=== PATIENT | male | born 1985 | race Caucasian/White ===

== ENCOUNTER 2017-10-30 08:19 | Emergency (ER) | payer MEDICAID, OTHER ==
[2017-10-30 08:19] VITALS: BMI 28.0
--- NOTE | 2017-10-30 09:07 | C.PDOC ---
History Of Present Illness 31 y/o male with PMHx of Hypercholesterolemia presents to ED with complaints of left sided abdominal pain for 4 days. Patient states he has history of constipation and reports moving bowel but hasn't had bowel movement today. Patient denies fever, chills, nausea, vomiting or any other complaints at this time. Time Seen by Provider: 10/30/17 08:21 Chief Complaint (Nursing): Abdominal Pain History Per: Patient History/Exam Limitations: no limitations Onset/Duration Of Symptoms: Days Current Symptoms Are (Timing): Still Present Location Of Pain/Discomfort: LUQ Radiation Of Pain To:: None Quality Of Discomfort: Cramping Last Bowel Movement: Yesterday Recent travel outside of the [place]: No Past Medical History Reviewed: Historical Data, Nursing Documentation, Vital Signs Vital Signs: Last Vital Signs Temp 98.3 F 10/30/17 10:10 Pulse 84 10/30/17 10:10 Resp 18 10/30/17 10:10 BP 119/83 10/30/17 10:10 Pulse Ox 97 10/30/17 10:10 - Medical History PMH: Hypercholesterolemia Surgical History: No Surg Hx - [facility] Procedures INJECT/INFUSE NEC (12/23/06) Family History: States: No Known Family Hx - Social History Hx Tobacco Use: No Hx Alcohol Use: No Hx Substance Use: No - Immunization History Hx Tetanus Toxoid Vaccination: No Hx Influenza Vaccination: No Hx Pneumococcal Vaccination: No Review Of Systems Constitutional: Negative for: Fever, Chills Gastrointestinal: Positive for: Abdominal Pain, Constipation. Negative for: Nausea, Vomiting Musculoskeletal: Negative for: Back Pain Skin: Negative for: Rash Physical Exam - Physical Exam Appears: Non-toxic, No Acute Distress Skin: Normal Color, Warm, Dry, No Rash Head: Atraumatic, Normacephalic Eye(s): bilateral: Normal Inspection Oral Mucosa: Moist Neck: Normal ROM, Supple Chest: Symmetrical Cardiovascular: Rhythm Regular Respiratory: Normal Breath Sounds, No Rales, No Rhonchi, No Wheezing Gastrointestinal/Abdominal: Soft, No Tenderness, No Guarding, No Rebound Back: No CVA Tenderness Extremity: Normal ROM, Capillary Refill (<2 seconds) Neurological/Psych: Oriented x3 Gait: Steady ED Course And Treatment - Laboratory Results Result Diagrams: 10/30/17 09:04 10/30/17 09:04 Lab Interpretation: Normal O2 Sat by Pulse Oximetry: 96 (RA) Pulse Ox Interpretation: Normal - Other Rad No standard instances X-Ray: Interpreted by Me Interpretation: OBS series: no OBS Progress Note: On re-evaluation abdomen soft non-tender. in no distress Reassessment Condition: Improved Medical Decision Making Medical Decision Making: Plan: Blood work, UA, Obstructive Series ordered Disposition Counseled Patient/Family Regarding: Studies Performed, Diagnosis, Need For Followup, Rx Given - Disposition Referrals: [facility] [Outside] [facility] [Outside] Disposition: HOME/ ROUTINE Disposition Time: 10:20 Condition: STABLE Additional Instructions: Follow up with PMD for further evaluation Return to ED if any increase symptoms Prescriptions: Polyethylene Glycol 3350 [Miralax] 17 gm PO DAILY PRN #12 packet PRN Reason: Constipation Instructions: Abdominal Pain (ED) Forms: [facility] ([place]) - POA Present On Arrival: None - Clinical Impression Clinical Impression: Abdominal pain, Constipated - 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 - Scribe Statement The provider has reviewed the documentation as recorded by the Scribedson Moser All medical record entries made by the Melanie were at my direction and personally dictated by me. I have reviewed the chart and agree that the record accurately reflects my personal performance of the history, physical exam, medical decision making, and the department course for this patient. I have also personally directed, reviewed, and agree with the discharge instructions and disposition.
[2017-10-30 09:12] LABS: RBC URINE < 1 /hpf (0-3); URINE BILIRUBIN NEGATIVE (NEGATIVE); URINE BLOOD NEGATIVE (NEGATIVE); URINE COLOR Straw (YELLOW); URINE GLUCOSE (UA) NORMAL (Normal); URINE KETONE NEGATIVE (NEGATIVE); URINE LEUKOCYTE ESTERASE NEG Leu/uL (Negative); URINE PROTEIN NEGATIVE (NEGATIVE); URINE UROBILINOGEN NORMAL mg/dL (0.2-1.0)
[2017-10-30 09:13] LABS: BASO % 0.7 % (0.0-2.0); EOS # 0.1 K/uL (0.0-0.7); EOS % 1.7 % (0.0-4.0); LYMPH # 1.4 K/uL (1.0-4.3); LYMPH % 26.2 % (20.0-40.0); MEAN CELL VOLUME 85.6 fL (80.0-94.0); MEAN CORPUSCULAR HEMOGLOBIN 29.8 pg (27.0-31.0); MEAN CORPUSCULAR HGB CONC 34.8 g/dL (33.0-37.0); MEAN PLATELET VOLUME 9.2 fL (7.2-11.7); MONO # 0.5 K/uL (0.0-0.8); MONO % 9.4 % (0.0-10.0); NRBC % 0.1 % (0.0-2.0); RED CELL DISTRIBUTION WIDTH 13.5 % (11.5-14.5); WHITE BLOOD COUNT 5.2 K/uL (4.8-10.8)
[2017-10-30 09:30] LABS: ALB/GLOB RATIO 1.6 (1.0-2.1); ALKALINE PHOSPHATASE 47 U/L (38-126); ALT/SGPT 41 U/L (21-72); AST/SGOT 23 U/L (17-59); BILIRUBIN,TOTAL 0.7 mg/dL (0.2-1.3); BLOOD UREA NITROGEN 12 mg/dL (9-20); CALCIUM 8.5 mg/dl (8.6-10.4); CARBON DIOXIDE 27 mmol/L (22-30); CHLORIDE 103 mmol/L (98-107); GFR AFRICAN-AMERICAN > 60; GLUCOSE,RANDOM 96 mg/dL (75-110); POTASSIUM 3.8 mmol/L (3.6-5.2); SODIUM 140 mmol/L (132-148); TOTAL PROTEIN 7.3 g/dL (6.3-8.3)
[2017-10-30 10:12] VITALS: BP 119/83; PULSE 84; RESP 18; TEMP 98.3
[2017-10-30 10:28] VITALS: O2SAT 96
--- NOTE | 2017-10-30 12:40 | RAD ---
PROCEDURE: Radiographs of the chest and abdomen (obstructive series) HISTORY: Abd Pain COMPARISON: CT abdomen pelvis with contrast performed 08/10/15, obstructive series performed 05/09/15 TECHNIQUE: AP radiograph of the chest, with upright and supine radiographs of the abdomen. FINDINGS: CHEST: Cardiomediastinal silhouette appears within normal limits. No focal consolidation, significant pleural effusion, or definite pneumothorax identified.Please note that chest x-ray has limited sensitivity for the detection of pulmonary masses. ABDOMEN AND PELVIS: Nonspecific dilated loops of small bowel in the upper mid abdomen. Mild to moderate constipation. No definite free air. No acute osseous abnormality is detected. IMPRESSION: Nonspecific dilated loops of small bowel in the upper mid abdomen. Correlate clinically for possibility of obstruction. CT may be considered for further evaluation if indicated. Mild to moderate constipation. Findings discussed with Paige Murrieta on 10/30/17 at 12:37 p.m..
== END 2017-10-30 10:32 | disposition home or self-care (01) ==
LOC: C.ER 08:19
DX: K59.00 Constipation, unspecified (principal); R10.12 Left upper quadrant pain

== ENCOUNTER 2017-12-18 11:08 | Emergency (ER) | payer BC, MEDICAID ==
[2017-12-18 11:08] VITALS: BMI 28.0
[2017-12-18 11:18] VITALS: TEMP 97.6
--- NOTE | 2017-12-18 11:45 | C.PDOC ---
History Of Present Illness 32 yo male w/ PMHx of high cholesterol ( diet control) come in for evaluation of intermittent left sided chest pain since yesterday. Pt reports, " this AM developed some heart flattering". Pt reports, episode of palpitation last few seconds and resolved with time. At present time, pt c/o mild chest tightness. Otherwise, pt denies previous hx of card. ds or surgery, denies recent illness, fever, chills, headache, dizziness, neck pain, SOB, dyspnea, palpitation, denies radiation of chest pain, abd. pain, N/V/D, back pain, UTI sx,. Ambulate to Ed for evaluation, not in any apparent distress. Time Seen by Provider: 12/18/17 11:24 Chief Complaint (Nursing): Chest Pain History Per: Patient Onset/Duration Of Symptoms: Intermittent Episodes Past Medical History Reviewed: Historical Data, Nursing Documentation, Vital Signs Vital Signs: Last Vital Signs Temp 97.6 F 12/18/17 13:50 Pulse 68 12/18/17 13:50 Resp 18 12/18/17 13:50 BP 110/69 12/18/17 13:50 Pulse Ox 98 12/18/17 14:06 - Medical History PMH: Hypercholesterolemia Surgical History: No Surg Hx - [facility] Procedures INJECT/INFUSE NEC (12/23/06) Family History: Denies: [place] (early) - Social History Hx Tobacco Use: No Hx Alcohol Use: No Hx Substance Use: No - Immunization History Hx Tetanus Toxoid Vaccination: No Hx Influenza Vaccination: No Hx Pneumococcal Vaccination: No Review Of Systems Except As Marked, All Systems Reviewed And Found Negative. Constitutional: Negative for: Fever, Chills Eyes: Negative for: Vision Change ENT: Negative for: Ear Discharge, Nose Discharge, Throat Pain, Throat Swelling Cardiovascular: Positive for: Chest Pain, Palpitations. Negative for: Edema, Light Headedness Respiratory: Negative for: Cough, Shortness of Breath, Wheezing Gastrointestinal: Negative for: Nausea, Vomiting, Abdominal Pain Genitourinary: Negative for: Dysuria Musculoskeletal: Negative for: Neck Pain, Back Pain Skin: Negative for: Rash Neurological: Negative for: Weakness, Numbness, Altered Mental Status, Headache , Dizziness Physical Exam - Physical Exam Appears: Well, Non-toxic, No Acute Distress Skin: Normal Color, Warm, Dry, No Rash Eye(s): bilateral: PERRL Nose: No Flaring, No Discharge Oral Mucosa: Moist Throat: No Drooling Neck: Trachea Midline, Supple Cardiovascular: Rhythm Regular, No Murmur, No JVD Respiratory: No Decreased Breath Sounds, No Accessory Muscle Use, No Stridor, No Wheezing Gastrointestinal/Abdominal: Soft, No Tenderness, No Distention, No Guarding Back: No CVA Tenderness Extremity: Normal ROM, No Pedal Edema, No Deformity Neurological/Psych: Oriented x3, Normal Speech ED Course And Treatment - Laboratory Results Result Diagrams: 12/18/17 12:37 12/18/17 12:37 Lab Interpretation: Normal ECG: Interpreted By Me, Viewed By Me (and ED attending) ECG Rhythm: Sinus Rhythm ECG Interpretation: Normal Interpretation Of ECG: SR@72/min, NAD, T wave inversion in III, no acute ST-T changes. O2 Sat by Pulse Oximetry: 98 Pulse Ox Interpretation: Normal - Radiology CXR: Interpreted by Me, Viewed By Me CXR Interpretation: Yes: No Acute Disease Progress Note: Pt was OBS in ED for 2.5 hours. On re-eval, pt reports moderate improvement symptoms. Pt sts, asymptomatic now. Afebrile, hemdoynamicaly stable. Non-toxic. Ambulatory in ED with stable gait. PuslEOx 98% RA. ENT: no acute findings. neck: SUpple, (-) JVD, (-) carotid bruits B/L. Lungs: CTA B /L, BS equal B/L. CVS: (+)S1S2, reg, (-) murmur. Abd: benign, (-) guarding, (- ) rebound. Back: (-) CVA tenderness. Neurologicaly intact. Blood work review and appears without acute abnormalities. Troponin- negative. CXR, EKG- normal study. Pt has clinical findings c/w chest pain, palpitation, nos. Pt advised. ref. to f/u with PMD, cardiology in 2-3 days for re-eavl. return to ED if any worsening or new changes. Disposition Counseled Patient/Family Regarding: Studies Performed, Diagnosis, Need For Followup, Rx Given - Disposition Referrals: [facility] [Outside] Disposition: HOME/ ROUTINE Disposition Time: 13:21 Condition: STABLE Additional Instructions: AVOID STRENUOUS PHYSICAL ACTIVITY FOR 1 WEEK FOLLOW UP WITH PM, CADRIOLOGY IN 2-3 DAYS FOR RE-EVALUATION. RETURN TO ED AT ANY TIME IF ANY WORSENING OR NEW CHANGES. Instructions: Chest Pain (ED) Forms: [facility] ([place]ian), Work Excuse - Clinical Impression Clinical Impression: Chest pain
[2017-12-18 12:46] LABS: BASO % 0.3 % (0.0-2.0); EOS # 0.1 K/uL (0.0-0.7); EOS % 1.1 % (0.0-4.0); HEMOGLOBIN 15.5 g/dL (12.0-18.0); LYMPH # 1.6 K/uL (1.0-4.3); LYMPH % 28.6 % (20.0-40.0); MEAN CELL VOLUME 85.3 fL (80.0-94.0); MEAN CORPUSCULAR HEMOGLOBIN 30.3 pg (27.0-31.0); MEAN CORPUSCULAR HGB CONC 35.6 g/dL (33.0-37.0); MONO # 0.4 K/uL (0.0-0.8); MONO % 6.5 % (0.0-10.0); NEUT # 3.6 K/uL (1.8-7.0); NEUT % 63.5 % (50.0-75.0); NRBC % 0.1 % (0.0-2.0); RBC 5.12 Mil/uL (4.40-5.90); RED CELL DISTRIBUTION WIDTH 13.7 % (11.5-14.5); WHITE BLOOD COUNT 5.6 K/uL (4.8-10.8)
[2017-12-18 12:52] LABS: INR 1.2
[2017-12-18 12:57] LABS: PROTHROMBIN TIME 14.2 SECONDS (9.7-12.2)
[2017-12-18 13:10] LABS: ALBUMIN 4.6 g/dL (3.5-5.0); ALT/SGPT 35 U/L (21-72); AST/SGOT 34 U/L (17-59); BLOOD UREA NITROGEN 11 mg/dL (9-20); CALCIUM 8.9 mg/dl (8.6-10.4); GFR AFRICAN-AMERICAN > 60; GFR NON-AFRICAN AMERICAN > 60
[2017-12-18 13:13] LABS: ALB/GLOB RATIO 1.2 (1.0-2.1)
[2017-12-18 13:59] VITALS: BP 110/69; PULSE 68; RESP 18
[2017-12-18 14:06] VITALS: O2SAT 98
--- NOTE | 2017-12-18 15:53 | RAD ---
HISTORY: chest pain COMPARISON: Obstructive series 05/09/2015 TECHNIQUE: Chest PA and lateral FINDINGS: LUNGS: No active pulmonary disease. PLEURA: No significant pleural effusion identified. No pneumothorax apparent. CARDIOVASCULAR: Normal. OSSEOUS STRUCTURES: No significant abnormalities. VISUALIZED UPPER ABDOMEN: Normal. OTHER FINDINGS: None. IMPRESSION: No active disease.
--- NOTE | 2017-12-18 20:52 | CARD ---
APPROVED REPORT EKG Measurement Heart [id number] <Conclusion> Normal sinus rhythm Normal ECG
== END 2017-12-18 14:14 | disposition home or self-care (01) ==
LOC: C.ER 11:08
DX: R07.9 Chest pain, unspecified (principal); E78.00 Pure hypercholesterolemia, unspecified